=== PATIENT | female | born 1990 | race Two or more races ===

== ENCOUNTER 2019-07-03 12:12 | Inpatient (IN) | payer OTHER ==
[~2019-07-03] VITALS: Ht 152.4 cm; Wt 3.2 kg
[2019-07-10] MEDS ORDERED: PRENAT PO (14:31)
[2019-07-10] MEDS ORDERED: IRON PO (14:32)
== END 2019-07-20 15:09 | disposition home or self-care (01) | DRG 788 ==
LOC: LDR 07-15 12:15 → O/R 07-17 09:13 → OB/GYN 07-17 12:36
PROVIDERS: ADMIT Obstetrics & Gynecology
PROC: 4A1HXCZ Monitoring of Products of Conception, Cardiac Rate, External Approach (ICD-10-PCS; 2019-07-17)
PROC: 10D00Z1 Extraction of Products of Conception, Low, Open Approach (ICD-10-PCS; principal; 2019-07-17 10:30)
DX: O99.02 Anemia complicating childbirth (principal); D64.9 Anemia, unspecified; Z3A.39 39 weeks gestation of pregnancy; Z37.0 Single live birth

== ENCOUNTER → 2022-06-20 08:08 | Outpatient (CLI) | payer OTHER ==
[~2022-06-20 08:08] MED LIST: IRON PO; PRENAT PO
== END | disposition home or self-care (01) ==
LOC: LAB 08:08
DX: E03.9 Hypothyroidism, unspecified (principal); E78.5 Hyperlipidemia, unspecified; E83.42 Hypomagnesemia; N91.2 Amenorrhea, unspecified; M10.9 Gout, unspecified